=== PATIENT | female | born 1990 | race Two or more races ===

== ENCOUNTER 2023-05-27 10:18 | Emergency (ER) | payer MEDICAID ==
[~2023-05-27] VITALS: Ht 160 cm; Wt 58.0 kg
[2023-05-27] MEDS ORDERED: HYDROcodone-ACET 5/325MG TAB PO ONE (15:15)
[2023-05-27] MEDS ORDERED: ZOFR4T PO (15:15)
[2023-05-27] MEDS ORDERED: KETOROLAC TROMETH 60MG/2ML VIAL IM ONE (15:15)
[2023-05-27] MEDS ORDERED: PROCHLORPERAZINE MALEATE 10 MG TAB PO ONE (15:15)
[2023-05-27] MEDS ORDERED: BUTA-280 OR (15:15)
[2023-05-27 16:00] VITALS: BP 110/74; PULSE 68; RESP 20; TEMP 97; O2SAT 98
== END 2023-05-27 16:06 | disposition home or self-care (01) ==
LOC: ER 10:18
DX: R51.9 Headache, unspecified (principal); M54.2 Cervicalgia
CPT/HCPCS: 70450; 72125; 96372; 99285; J1885; Q0164